=== PATIENT | male | born 1930 | race Caucasian/White ===

== ENCOUNTER 2019-04-27 12:45 | Emergency (ER) | payer MEDICARE, OTHER ==
[2019-04-27 13:19] LABS: BASOPHILS % (AUTO) 0.6 % (0.0-5.0); EOSINOPHILS % (AUTO) 1.1 % (0.0-8.0); LYMPHOCYTES % (AUTO) 8.5 % (21.0-51.0); MEAN CORPUSCULAR HEMOGLOBIN 30.9 pg (27.0-33.0); MEAN CORPUSCULAR VOLUME 93.8 fL (79-99); MONOCYTES % (AUTO) 10.2 % (3.0-13.0); NEUTROPHILS % (AUTO) 79.6 % (40.0-77.0); PLATELET COUNT (AUTO) 186 K/uL (130-400); RED BLOOD CELL COUNT(AUTO) 4.37 MIL/uL (4.50-6.20); RED CELL DISTRIBUTION WIDTH 15.3 % (11.0-15.5); WHITE BLOOD COUNT (AUTO) 11.4 K/uL (4.8-10.8)
[2019-04-27 13:25] LABS: APPEARANCE,URINE Cloudy (CLEAR); BILIRUBIN,URINE Negative (NEGATIVE); COLOR,URINE Yellow (YELLOW); GLUCOSE, URINE (UA) Negative (NEGATIVE); KETONES,URINE Negative (NEGATIVE); LEUKOCYTE ESTERASE ,URINE Small (NEGATIVE); NITRATE,URINE Negative (NEGATIVE); OCCULT BLOOD,URINE Trace (NEGATIVE); PROTEIN,URINE POS 2+ mg/dL (NEGATIVE); UROBILINOGEN,URINE 0.2 mg/dL (0.2-1.0)
[2019-04-27 13:32] LABS: CREATININE 1.8 mg/dL (0.5-1.5); POTASSIUM 4.2 mmol/L (3.5-5.1)
[2019-04-27 13:37] LABS: ALBUMIN 3.7 g/dL (3.5-5.0); BILIRUBIN,TOTAL 0.7 mg/dL (0.2-1.0); TOTAL PROTEIN, SERUM 7.2 g/dL (6.0-8.3)
[2019-04-27 13:55] LABS: BACTERIA,URINE Few /HPF (None Seen); RBC,URINE 0-1 /HPF (0-1); SQUAMOUS EPITHELIAL CELL,UR Few /HPF (0-2)
[2019-04-27] MEDS ORDERED: CEFTRIAXONE SODIUM 1 GM ONE (14:25)
[2019-04-29] MEDS ORDERED: CHOL200079 PO (02:18)
[2019-04-29] MEDS ORDERED: PRENATAL MULTIVITAMIN PO (02:18)
[2019-04-29] MEDS ORDERED: FINA5TAB41 PO (02:18)
[2019-04-29] MEDS ORDERED: ONDA4TAB4 PO (02:18)
[2019-04-29] MEDS ORDERED: SULF1TAB89 PO (02:18)
[2019-04-29] MEDS ORDERED: GLIM2TAB4 PO (02:18)
[2019-04-29] MEDS ORDERED: GABA600T10 PO ×2 (02:18)
[2019-04-29] MEDS ORDERED: LEVO125 PO (02:18)
[2019-04-29] MEDS ORDERED: SERT50TA12 PO (02:18)
[2019-04-29] MEDS ORDERED: SITA50TA PO (02:18)
[2019-04-29] MEDS ORDERED: CALC600T12 PO (02:18)
[2019-04-29] MEDS ORDERED: OXYB10TA2 PO (02:18)
[2019-04-29] MEDS ORDERED: MYCO500T5 PO ×2 (02:18)
[2019-04-29] MEDS ORDERED: ATOR10 PO (02:18)
[2019-04-29] MEDS ORDERED: ROPI1TAB11 PO (02:18)
[2019-04-29] MEDS ORDERED: FLUT15.845 NS (02:18)
[2019-04-29] MEDS ORDERED: POTA10CA44 PO (02:18)
[2019-04-29] MEDS ORDERED: PYRI60TA PO ×2 (02:18)
[2019-04-29] MEDS ORDERED: LISI10TA7 PO (02:18)
[2019-04-29] MEDS ORDERED: TRAM50TA4 PO (02:18)
[2019-04-29] MEDS ORDERED: ROPI0.5T5 PO (02:18)
== END 2019-04-27 15:01 | disposition home or self-care (01) ==
LOC: EDH 12:45
DX: N39.0 Urinary tract infection, site not specified (principal); E11.9 Type 2 diabetes mellitus without complications; Z88.0 Allergy status to penicillin; Z98.52 Vasectomy status
CPT/HCPCS: 36415; 80053; 81001; 83690; 85025; 87088; 93005; 96374; 99285; J0696

== ENCOUNTER → 2019-07-29 | Outpatient (CLI) | payer OTHER ==
[~2019-07-29] MED LIST: ATOR10 PO; CALC600T12 PO; CHOL200079 PO; FINA5TAB41 PO; FLUT15.845 NS; GABA600T10 PO; GLIM2TAB30 PO; LEVO125 PO; LISI10TA7 PO; MYCO500T5 PO; ONDA4TAB4 PO; OXYB10TA30 PO; POTA10CA44 PO; PYRI60TA PO; ROPI0.5T7 PO; SERT50TA12 PO; SITA50TA PO; SULF1TAB89 PO; TRAM50TA4 PO
== END | disposition home or self-care (01) ==
LOC: RAH 07:53
PROVIDERS: ATTEND Urology
DX: N28.1 Cyst of kidney, acquired (principal)
CPT/HCPCS: 74176

== ENCOUNTER → 2020-02-02 | Outpatient (CLI) | payer OTHER ==
[~2020-02-02] VITALS: Ht 175.3 cm; Wt 79.7 kg
[~2020-02-02] MED LIST changes: +APIX5TAB PO; +ASCO250T22 PO; -CALC600T12 PO; +CALC600T15 PO; +CYAN1TAB44 PO; +GABA-529 PO; +LACT460C PO; +PREN-64 PO; +PYRI60TA2 PO; +SODIUM CHLORIDE 0.9% 1000ML 1,000 ML IV SCH; +TAMS-1 PO; +VANCOMYCIN 1GM+NS 250ML 250 ML IV PRN; +VITAD50000 PO; +ZINC50TA15 PO
[2020-02-02 11:26] VITALS: BP 121/51
--- NOTE | 2020-02-02 16:35 | NUR ---
SURYA INFORMED DAVID PERALTA OF PT STOPPING ELIQUIS ON Friday. ORDERS RECEIVED TO PROCEED WITH PLANNED PROCEDURE.
[2020-02-02 16:44] LABS: BASOPHILS % (AUTO) 0.2 % (0.0-5.0); EOSINOPHILS % (AUTO) 2.1 % (0.0-8.0); LYMPHOCYTES % (AUTO) 16.1 % (21.0-51.0); MEAN CORPUSCULAR VOLUME 96.7 fL (79-99); NEUTROPHILS % (AUTO) 70.4 % (40.0-77.0); PLATELET COUNT (AUTO) 148 K/uL (130-400); RED BLOOD CELL COUNT(AUTO) 4.24 MIL/uL (4.50-6.20); RED CELL DISTRIBUTION WIDTH 14.6 % (11.0-15.5); WHITE BLOOD COUNT (AUTO) 4.8 K/uL (4.8-10.8)
[2020-02-02 16:56] LABS: INR 0.96 (0.85-1.15); PARTIAL THROMBOPLASTIN TIME 32.5 SEC (26.3-35.5); PROTHROMBIN TIME 10.4 SEC (9.6-11.6)
[2020-02-02 18:12] LABS: POTASSIUM 3.9 mmol/L (3.5-5.1)
== END | disposition home or self-care (01) ==
LOC: DAH 10:00 → EDSTATUS 02-04 08:00
PROVIDERS: ATTEND Internal Medicine Cardiovascular Disease
DX: U07.1 COVID-19 (principal); Z01.818 Encounter for other preprocedural examination; I49.1 Atrial premature depolarization; I48.0 Paroxysmal atrial fibrillation; G90.9 Disorder of the autonomic nervous system, unspecified
CPT/HCPCS: 36415; 80048; 85025; 85610; 85730; 93005; C9803; U0003

== ENCOUNTER 2020-02-29 06:00 | Observation (INO) | payer OTHER ==
[2020-02-24 10:15] LABS: BASOPHILS % (AUTO) 0.3 % (0.0-5.0); HEMATOCRIT 37.3 % (42-54); LYMPHOCYTES % (AUTO) 13.3 % (21.0-51.0); MEAN CORPUSCULAR HEMOGLOBIN 29.9 pg (27.0-33.0); MEAN CORPUSCULAR HGB CONC 30.8 g/dL (32.0-36.0); MEAN CORPUSCULAR VOLUME 97.1 fL (79-99); NEUTROPHILS % (AUTO) 75.2 % (40.0-77.0); PLATELET COUNT (AUTO) 177 K/uL (130-400); RED BLOOD CELL COUNT(AUTO) 3.84 MIL/uL (4.50-6.20); RED CELL DISTRIBUTION WIDTH 14.9 % (11.0-15.5); WHITE BLOOD COUNT (AUTO) 9.1 K/uL (4.8-10.8)
[2020-02-24 10:26] LABS: POTASSIUM 4.3 mmol/L (3.5-5.1)
[2020-02-24 10:28] LABS: INR 0.99 (0.85-1.15); PARTIAL THROMBOPLASTIN TIME 31.3 SEC (26.3-35.5); PROTHROMBIN TIME 10.7 SEC (9.6-11.6)
[2020-02-24] MEDS: VANCOMYCIN 1GM+NS 250ML 250 ML IV SCH (14:00)
[2020-02-25 10:00] VITALS: BP 141/63
--- NOTE | 2020-02-25 11:41 | NUR ---
DR GATES AWARE OF ABNORMAL LABS- NO NEW ORDERS
[2020-02-25] MEDS: VANCOMYCIN 1GM+NS 250ML 250 ML IV SCH (14:00)
[2020-02-26] MEDS: VANCOMYCIN 1GM+NS 250ML 250 ML IV SCH (14:00)
[2020-02-27] MEDS: VANCOMYCIN 1GM+NS 250ML 250 ML IV SCH (14:00)
[2020-02-28] MEDS: VANCOMYCIN 1GM+NS 250ML 250 ML IV SCH (14:00)
[2020-02-29] VITALS (13 sets, daily range): BP systolic 133–192; BP diastolic 63–94
[~2020-02-29] VITALS: Ht 174 cm; Wt 80.4 kg
[~2020-02-29 06:00] MED LIST changes: -FINA5TAB41 PO; -FLUT15.845 NS; -GABA600T10 PO; -LISI10TA7 PO; -ONDA4TAB4 PO; -OXYB10TA30 PO; -PYRI60TA PO; -SODIUM CHLORIDE 0.9% 1000ML 1,000 ML IV SCH; -SULF1TAB89 PO; -TRAM50TA4 PO; -VANCOMYCIN 1GM+NS 250ML 250 ML IV PRN; -VITAD50000 PO; -ZINC50TA15 PO
[2020-02-29] MEDS ORDERED: MIDAZOLAM HCL 1 MG/ML 2ML VIAL ONE ×4 (07:46→10:29)
[2020-02-29] MEDS ORDERED: MEPERIDINE-PF 25 MG/ML SYG ONE ×4 (07:46→10:29)
[2020-02-29] MEDS ORDERED: LIDOCAINE HCL 2% 20ML ONE (07:47)
[2020-02-29] MEDS ORDERED: BUPIVACAINE/PF 0.25% 30ML VIAL IJ ONE (07:55)
[2020-02-29] MEDS ORDERED: VANCOMYCIN 1GM+NS 250ML 500 ML IV ONE (07:55)
[2020-02-29] MEDS ORDERED: LIDOCAINE HCL 1% MDV 50ML VIAL ONE (07:55)
[2020-02-29] MEDS ORDERED: IOHEXOL-350 50ML VIAL IV ONE (07:55)
--- NOTE | 2020-02-29 08:15 | NUR ---
PT TAKEN TO SUPPLIER RELATIONSHIP DIRECTOR VIA BED BY MIGNON HOLLOWAY RN
[2020-02-29] MEDS ORDERED: AEC81 PO (08:49)
[2020-02-29] MEDS ORDERED: [UNRECOGNIZED DRUG - OTHER] PO (08:49)
[2020-02-29] MEDS ORDERED: LOSA25TA41 PO (08:49)
[2020-02-29] MEDS ORDERED: FLUT16H NASAL (08:49)
[2020-02-29] MEDS ORDERED: IRON PO (08:49)
[2020-02-29] MEDS ORDERED: SODIUM CHLORIDE 0.9% 1000ML 1,000 ML IV ONE (08:52)
[2020-02-29] MEDS ORDERED: ACETAMINOPHEN-CODEINE 300/30MG TAB PO PRN (11:15)
[2020-02-29] MEDS: VANCOMYCIN 1GM+NS 250ML 250 ML IV SCH (12:46)
[2020-02-29] MEDS: PYRIDOSTIGMINE BROMIDE 60 MG TABLET PO SCH ×3 (13:00→21:00)
[2020-02-29] MEDS: ROPINIROLE HCL 1 MG TABLET PO SCH ×2 (17:27→21:00)
[2020-02-29] MEDS ORDERED: SERTRALINE HCL 50 MG TABLET PO SCH (21:00)
[2020-02-29] MEDS: GABAPENTIN 300 MG CAPSULE PO SCH (21:00)
[2020-02-29] MEDS ORDERED: MYCOPHENOLATE MOFETIL 250 MG CAPSULE PO SCH (21:00)
[2020-02-29] MEDS ORDERED: ATORVASTATIN CALCIUM 20 MG TABLET PO SCH (21:00)
[2020-02-29] MEDS: ASCORBIC ACID 500 MG TAB PO SCH (21:00)
[2020-02-29] MEDS ORDERED: TAMSULOSIN HCL 0.4 MG CAP.ER.24H PO SCH (21:00)
[2020-02-29] MEDS: FLUTICASONE PROPIONATE 50MCG/SPRAY 16 GM BOTTLE EN SCH (21:00)
[2020-02-29] MEDS ORDERED: LOSARTAN 50 MG TABLET PO SCH (21:00)
--- NOTE | 2020-03-01 | NUR ---
Report received from [facility]. Patient alert and oriented, resting in bed. Patient denies chest pain or sob. Did complain of incisional pain upon assessment. Patient medicated with ordered pain med. Bilateral radial pulses palpable. Left nail beds pink in color. Denies pain or tingling to left arm. 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
[2020-03-01 03:54] VITALS: BP 143/67
[2020-03-01] MEDS ORDERED: LEVOTHYROXINE 125 MCG TABLET PO SCH ×2 (06:00→09:00)
[2020-03-01 07:54] VITALS: BP 148/69
[2020-03-01] MEDS ORDERED: POTASSIUM CHLORIDE 10 MEQ/TAB.SA PO SCH (09:00)
[2020-03-01] MEDS ORDERED: ASPIRIN 81 MG EC TAB PO SCH (09:00)
[2020-03-01] MEDS ORDERED: LINAGLIPTIN 5 MG TABLET PO SCH (09:00)
[2020-03-01] MEDS ORDERED: GLIMEPIRIDE 2 MG TABLET PO SCH (09:00)
[2020-03-01] MEDS ORDERED: FLORAGEN PO SCH (09:00)
[2020-03-01] MEDS ORDERED: CALCIUM CARBONATE 500 MG TABLET PO SCH (09:00)
[2020-03-01] MEDS ORDERED: PRENATAL VITAMIN RX TABLET PO SCH (09:00)
[2020-03-01] MEDS ORDERED: VIT B12 FOLIC ACID PO SCH (09:00)
[2020-03-01] MEDS ORDERED: MYCOPHENOLATE MOFETIL 250 MG CAPSULE PO SCH (09:00)
[2020-03-01] MEDS ORDERED: [UNRECOGNIZED DRUG - OTHER] PO SCH (09:00)
[2020-03-01] MEDS: FLUTICASONE PROPIONATE 50MCG/SPRAY 16 GM BOTTLE EN SCH (09:00)
[2020-03-01] MEDS ORDERED: LACTOBACILLUS RHAMNOSUS GG 1 EACH CAP.SPRINK PO SCH (09:00)
[2020-03-01] MEDS ORDERED: FERROUS SULFATE 325 MG TABLET.DR PO SCH (09:00)
[2020-03-01] MEDS: GABAPENTIN 300 MG CAPSULE PO SCH (09:21)
[2020-03-01] MEDS: ROPINIROLE HCL 1 MG TABLET PO SCH ×2 (09:22→14:00)
[2020-03-01] MEDS: ASCORBIC ACID 500 MG TAB PO SCH (09:22)
[2020-03-01] MEDS: PYRIDOSTIGMINE BROMIDE 60 MG TABLET PO SCH ×2 (09:38→13:59)
[2020-03-01 11:42] VITALS: BP 160/86
--- NOTE | 2020-03-01 12:15 | NUR ---
[id number] patient signed GARCIA Letter, I faxed GARCIA Letter to [phone] and placed in chart under consent tab.
[2020-03-01] MEDS: VANCOMYCIN 1GM+NS 250ML 250 ML IV SCH (13:30)
[2020-03-01] MEDS ORDERED: BENZOCAINE/MENTH/CETYLPYRD CL 1 EACH LOZENGE MM PRN (13:45)
--- NOTE | 2020-03-01 15:10 | NUR ---
HL REMOVED, CATHETER INTACT. DISCHARGE INSTRUCTIONS GIVEN, VERBALIZED UNDERSTANDING.
== END 2020-03-01 15:00 | disposition home or self-care (01) ==
LOC: DAH 06:00 → DAHIP 06:01 → 4DH 12:07
PROVIDERS: ADMIT Internal Medicine Cardiovascular Disease; ATTEND Internal Medicine Cardiovascular Disease
DX: I48.0 Paroxysmal atrial fibrillation (principal); I47.1 Supraventricular tachycardia; I49.5 Sick sinus syndrome; I48.91 Unspecified atrial fibrillation; G90.9 Disorder of the autonomic nervous system, unspecified; R55 Syncope and collapse; G70.00 Myasthenia gravis without (acute) exacerbation; R31.0 Gross hematuria
CPT/HCPCS: 33208; 33286; 36415; 71045; 80048; 82948; 85025; 85610; 85730; 93005 ×2; 93619; 93650; A4215; A4216; A4221; A4222; A4223 ×3; A4606; A4649 ×3; A4663; C1732; C1785; C1894; C1898 ×2; G0378 ×19; J1644 ×2; J2175 ×3; J2250 ×3; J3370; J3490 ×3; J7030; J7517; 99156; 99157; Q9967

== ENCOUNTER → 2020-05-17 | Outpatient (CLI) | payer OTHER ==
[~2020-05-17] MED LIST changes: +AEC81 PO; +FLUT16H NASAL; +IRON PO; +LOSA25TA41 PO; +[UNRECOGNIZED DRUG - OTHER] PO
== END | disposition home or self-care (01) ==
LOC: RAH 09:19
PROVIDERS: ATTEND Internal Medicine Gastroenterology
DX: N28.1 Cyst of kidney, acquired (principal); K76.0 Fatty (change of) liver, not elsewhere classified; R10.13 Epigastric pain
CPT/HCPCS: 76700

== ENCOUNTER → 2020-06-09 | Outpatient (CLI) | payer OTHER | END | disposition home or self-care (01) | LOC: RAH 08:51 | PROVIDERS: ATTEND Internal Medicine Gastroenterology | DX: K22.8 Other specified diseases of esophagus (principal) | CPT/HCPCS: 74240 ==

== ENCOUNTER → 2020-07-19 | Outpatient (CLI) | payer OTHER | END | disposition home or self-care (01) | LOC: RAH 10:33 | PROVIDERS: ATTEND Internal Medicine Gastroenterology | DX: N40.0 Benign prostatic hyperplasia without lower urinary tract symptoms (principal); N28.1 Cyst of kidney, acquired; R63.4 Abnormal weight loss | CPT/HCPCS: 74176 ==

== ENCOUNTER → 2020-08-08 | Outpatient (CLI) | payer OTHER ==
[~2020-08-08] MED LIST changes: +IOHEXOL 350 MG/ML 100ML INFUS..BTL IV ONE; +SERT-439 PO; -SERT50TA12 PO
== END | disposition home or self-care (01) ==
LOC: OIH 08:50
PROVIDERS: ATTEND Internal Medicine Gastroenterology
DX: N40.0 Benign prostatic hyperplasia without lower urinary tract symptoms (principal); N28.1 Cyst of kidney, acquired; N32.0 Bladder-neck obstruction
CPT/HCPCS: 74178; Q9967